=== PATIENT | female | born 1940 | race Caucasian/White ===

== ENCOUNTER 2016-09-15 07:35 | Emergency (ER) | payer MEDICARE, OTHER ==
--- NOTE | ~2016-09-15 | EKG ---
PATIENT: ABBIE PANG UNIT #: [id number] Ventricular Rate: 75 BPM Atrial Rate: 75 BPM P-R Interval: 268 ms QRS Duration: 78 ms Q-T Interval: 420 ms QTC Calculation(Bezet): 469 ms P [place]: 69 degrees Calculated R [place]: -16 degrees Calculated T [place]: 84 degrees Diagnosis Line: Sinus rhythm with 1st degree A-V block Diagnosis Line: Nonspecific ST and T wave abnormality Diagnosis Line: Abnormal ECG Diagnosis Line: When compared with ECG of 24-JAN-2015 08:52, Diagnosis Line: No significant change was found Diagnosis Line: Confirmed by NITISH SUH MD ([id number]) on Diagnosis Line: 10/22/2016 7:04:26 AM INTERPRETING JAMIN DOS SANTOS
--- NOTE | ~2016-09-15 | CR58 ---
[facility]. [facility] A Service of [facility] RADIOLOGY TEXT RESULTS PATIENT: ABBIE PANG LOCATION: SED : 40 UNIT #: [id number] AGE: [address]: Edwin James MD SEX: F ORDER DR: [id number] [place] [id number] E MR#: [id number] Acc #: [id number] NAME: ABBIE PANG : 1940 SEX: F STUDY DATE/TIME: 09/15/2016 8:21 UNIT: SED ROOM: STUDY DESCRIPTION: CR Cervical Spine 2 or 3 Views Attending Physician: Edwin James M.D. Ordering Physician: Edwin James M.D. Primary Care Physician: Kayla Arora M.D. MEDICAL IMAGING REPORT This report is preliminary unless electronic signature is present. EXAM Cervical spine series 09/15/2016 HISTORY Neck pain after fall this morning. FINDINGS 5 views of the cervical spine. No fracture or acute abnormality. Mid cervical degenerative change including discogenic and facet degenerative change, but no prevertebral swelling or other acute finding. Atherosclerotic carotid vascular calcification is noted on the right as well. IMPRESSION Mild degenerative changes. No acute abnormality. Dictated by... Say Durbin M.D. THIS IS AN ELECTRONICALLY VERIFIED REPORT Say Durbin M.D. at 09/17/2016 3:46 PM TEV/to TD: 09/15/2016 13:11 JOB #: [id number] MEDICAL IMAGING REPORT
--- NOTE | ~2016-09-15 | CT71 ---
[facility] A Service of [facility] RADIOLOGY TEXT RESULTS PATIENT: ABBIE PANG LOCATION: SED : 40 UNIT #: [id number] AGE: [address]: Edwin James MD SEX: F ORDER DR: [id number] [place] [id number] E MR#: [id number] Acc #: [id number] NAME: ABBIE PANG : 1940 SEX: F STUDY DATE/TIME: 09/15/2016 8:18 UNIT: SED ROOM: STUDY DESCRIPTION: CT Head Wo Contrast Attending Physician: Edwin James M.D. Ordering Physician: Edwin James M.D. Primary Care Physician: Kayla Arora M.D. MEDICAL IMAGING REPORT This report is preliminary unless electronic signature is present. EXAM Head CT without contrast HISTORY Patient fell this morning with loss of consciousness. Headache and neck pain since with posterior laceration. TECHNIQUE Axial images were obtained without contrast. This CT examination was performed with one or more of the following radiation dose reduction techniques: automatic exposure control, adjustment of mA and/or kV according to patient size, and iterative reconstruction. FINDINGS Axial noncontrast images were obtained from the skull base to the vertex. Ventricular size and configuration are normal. There is no evidence of acute infarct or hemorrhage. There are no extraaxial fluid collections. No mass lesion or mass effect is seen. There are no skull fractures. IMPRESSION Normal noncontrast head CT. Dictated by... Yaya Moore M.D. THIS IS AN ELECTRONICALLY VERIFIED REPORT Yaya Moore M.D. at 09/15/2016 4:46 PM JOÃOF/negro TD: 09/15/2016 13:00 JOB #: [id number] [facility] A Service of [facility] RADIOLOGY TEXT RESULTS PATIENT: ABBIE PANG LOCATION: SED : 40 UNIT #: [id number] AGE: [address]: Edwin James MD SEX: F ORDER DR: MEDICAL IMAGING REPORT
[~2016-09-15 07:35] MED LIST: ALEVE220 M1 PO; ALLEGRA ALLERG180 MG PO; ALLEGRA180 MG PO; AMARYL PO; AMLODIPINE BESYL5 MG PO; AMOXICILLIN250 M1 PO; ASCORBIC ACID500 MG; ASPIRIN EC81 M1 PO; ASPIRIN81 MG; CALCIUM + VITAMIN D; CALCIUM1 TAB.CHEW; CELEBREX; CIPRO PO; DIOVAN; DOCUSATE SODIU100 MG; FEXOFENADINE HC60 MG; FLONASE 0.05% N16 G1; FLUNISOLIDE25 ML; GABAPENTIN300 MG PO; GLYBURIDE; GLYNASE; HCTZ; HYDROXYZINE HCL10 MG PO; JANUVIA PO; JANUVIA25 MG; LEVEMIR100 UNITS/; LOVASTATIN10 MG; MAGNESIUM30 MG; MICRONASE5 M1 PO; MICROZIDE12.5 M1 PO; MIRABEGRON; MULTI VITAMIN1 EACH PO; MULTI-VITAMIN1 TAB; MULTIVITAMINS1 EAC2; NATURAL VITA400 UNI3 PO; NEURONTIN100 MG; NEURONTIN300 MG PO; NORCO 7.5-3251 EACH PO; NORVASC2.5 MG; OMEPRAZOLE40 M1 PO; PLAQUENIL200 MG; PLAQUENIL200 MG PO; PREMARIN VAG CR45 GM; PREMARIN VAG CR45 GM VAG; PRILOSEC; SYNTHROID; SYNTHROID112 MCG PO; SYNTHROID75 MCG; SYNTHROID75 MCG PO; TRIAMCINOLONE AC1 GM EXT; VALSARTAN160 MG PO; VITAMIN B 12; VITAMIN B-COMPL1 CA1 PO; VITAMIN B122500 MCG; VITAMIN C DAILY; VITAMIN D250000 UNIT PO; VITAMIN D3400 UNI2; VITAMIN D5000 UNIT PO
[2016-09-15 08:25] LABS: BASOPHIL# 0.1 X10e3 (0-0.3); BASOPHIL% 1.3 % (0-2.5); EOSINOPHIL# 0.3 X10e3 (0-0.7); EOSINOPHIL% 3.9 % (0.0-7.0); HEMATOCRIT 41.3 % (35.0-45.0); HEMOGLOBIN 14.1 gm/dL (12.0-16.0); LYMPHOCYTE# 1.3 X10e3 (1.0-3.5); LYMPHOCYTE% 15.3 % (17.0-45.0); MEAN CELL VOLUME 88.1 FL (83-96); MEAN CORPUSCULAR HEMOGLOBIN 30.1 PG (28-34); MEAN CORPUSCULAR HGB CONC 34.2 g/dL (30-36); MEAN PLATELET VOLUME 11.4 FL (6.5-11.5); MONOCYTE# 0.8 X10e3 (0-1.0); MONOCYTE% 9.4 % (3.0-12.0); NEUTROPHIL# 5.8 X10e3 (1.5-7.1); NEUTROPHIL% 70.1 % (40-75); PLATELET COUNT 140 X10e3 (140-420); RED BLOOD COUNT 4.69 X10e (3.90-5.30); RED CELL DISTRIBUTION WIDTH 12.5 % (11.0-15.5); WHITE BLOOD COUNT 8.3 X10e3 (4.0-10.5)
[2016-09-15 08:28] LABS: POC - CKMB 1.3 ng/mL (0.0-7.9); POC - MYOGLOBIN 63.7 ng/mL (0.0-169.0); POC - TROPONIN <0.05 ng/mL (<=0.05)
[2016-09-15 08:49] LABS: DIFF IND NO
[2016-09-15 08:52] LABS: ALBUMIN SERUM 4.3 g/dL (3.5-5.0); ALKALINE PHOSPHATASE 52 U/L (32-92); ALT (SGPT) 23 U/L (10-40); AST (SGOT) 20 U/L (10-42); BILIRUBIN,TOTAL 0.7 mg/dL (0.2-2.0); BLOOD UREA NITROGEN 24 mg/dL (9-23); BUN/CREATININE RATIO 26.66; CALCIUM SERUM 8.9 mg/dL (8.4-10.2); CARBON DIOXIDE 24 mmol/L (22-31); CHLORIDE 100 mmol/L (100-111); CREATININE SERUM 0.9 mg/dL (0.6-1.4); GLOM FILT RATE Estimated ABOVE60 mL/min (>60); GLUCOSE FASTING 159 mg/dL (70-110); POTASSIUM 3.3 mmol/L (3.5-5.1); PROTEIN TOTAL SERUM 7.4 g/dL (6.0-8.3); SODIUM 134 mmol/L (135-145)
[2016-09-15 08:53] LABS: BILIRUBIN, DIRECT <0.1 mg/dL (0.0-0.2); BILIRUBIN,INDIRECT 0.6 mg/dL (0.0-0.9)
[2016-09-15 09:35] LABS: URINE SOURCE CLEAN CATCH
[2016-09-15 09:37] LABS: URINE APPEARANCE CLEAR; URINE BILIRUBIN NEG (NEG); URINE BLOOD NEG (NEG); URINE COLOR YELLOW; URINE GLUCOSE NEG (NORM); URINE KETONE NEG (NEG); URINE LEUKOCYTE ESTERASE 1+ (NEG); URINE NITRATE NEG (NEG); URINE PH 5.5 (5-8); URINE PROTEIN NEG (NEG); URINE UROBILINOGEN 0.2 MG/DL (NORM)
[2016-09-15 10:06] LABS: MICRO INDICATED? YES
[2016-09-15 10:14] LABS: CULTURE INDICATED? YES; URINE BACTERIA 1+ (NEG); URINE RBC 0-2 /[HPF] (0-2); URINE SQUAMOUS EPITHELIAL CELL OCCAS /[HPF]
== END 2016-09-15 11:14 | disposition home or self-care (01) ==
LOC: SED 07:35
PROVIDERS: Emergency Medicine
DX: S01.01XA Laceration without foreign body of scalp, initial encounter (principal); N39.0 Urinary tract infection, site not specified; E87.6 Hypokalemia; E10.649 Type 1 diabetes mellitus with hypoglycemia without coma; I10 Essential (primary) hypertension; K21.9 Gastro-esophageal reflux disease without esophagitis; Z79.899 Other long term (current) drug therapy; Z91.012 Allergy to eggs; Z91.013 Allergy to seafood; Z91.010 Allergy to peanuts; Z88.8 Allergy status to other drugs, medicaments and biological substances; W19.XXXA Unspecified fall, initial encounter; Y92.009 Unspecified place in unspecified non-institutional (private) residence as the place of occurrence of the external cause
CPT/HCPCS: 12002; 36415; 70450; 72040; 80048; 80076; 81003; 82553; 82947; 83874; 84484; 85025; 87086; 93005; 99284